=== PATIENT | female | born 1955 | race Caucasian/White ===

== ENCOUNTER 2017-01-15 18:24 | Emergency (ER) | payer BC ==
[2017-01-15] MEDS ORDERED: Phenylephrine 0.5% Nasal Spray 15 ML Bot NASLF ONE (19:54)
[2017-01-15] MEDS ORDERED: Acetaminophen/HYDROcodone 325-5 MG Tab PO ONE (21:02)
--- NOTE | 2017-01-15 21:07 | EDM.PDOC ---
ED HPI GENERAL MEDICAL PROBLEM - General Chief Complaint: ENT Problem Stated Complaint: NOSE BLEED Time Seen by Provider: 01/15/17 19:24 Source of Information: Reports: Patient, Family (spouse), RN Notes Reviewed History Limitations: Reports: No Limitations - History of Present Illness INITIAL COMMENTS - FREE TEXT/NARRATIVE: .25 Brought by her Chief complaint Nosebleed History of present illness 61-year-old female underwent septal deviation repair at about 10:30 this morning at [place] [facility], Dr. Camargo Plastic splint inserted bilaterally She had a history of chronic septal deviation since fracture at age 9, possible multiple fractures with chronic right-sided nasal obstruction and recurrent sinusitis. Post surgery she did very well, she could breathe from both sides and she felt relieved. In the afternoon started having some bleeding from the left nares. Now is obstructed by clot and she can feel down the back of her throat. In addition there is still some bleeding going on although she was told to expect this as often as every 15 minutes to change the bandage. She is gagging on the quadrant of the back of her throat - Related Data Allergies Allergy/AdvReac Type Severity Reaction Status Date / Time cephalexin Allergy Cannot Verified 08/19/14 08:13 Remember Home Meds: Home Meds Calcium Carbonate [Calcium] 600 mg PO DAILY 08/12/14 [History] Cyanocobalamin (Vitamin B-12) [B-12] 5,000 mcg PO DAILY 08/12/14 [History] Ferrous Fumarate [Ferrocite] 324 mg PO DAILY PRN 08/12/14 [History] Levothyroxine Sodium [Synthroid] 125 mcg PO DAILY 08/12/14 [History] Venlafaxine HCl [Venlafaxine HCl ER] 300 mg PO DAILY 08/12/14 [History] Past Medical History HEENT History: Reports: Impaired Vision Genitourinary History: Reports: UTI, Recurrent 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 Social & Family History - Tobacco Use Smoking Status *Q: Never Smoker - Caffeine Use Caffeine Use: Reports: Coffee - Recreational Drug Use Recreational Drug Use: No ED ROS ENT - Review of Systems Review Of Systems: See Below Constitutional: Reports: No Symptoms HEENT: Reports: Nosebleed, Other (Nasal pain) Respiratory: Reports: Other (Gagging on postnasal clot). Denies: Shortness of Breath, Cough Cardiovascular: Reports: No Symptoms GI/Abdominal: Reports: No Symptoms Skin: Reports: No Symptoms ED EXAM, ENT - Physical Exam Exam: See Below Exam Limited By: No Limitations General Appearance: Alert, Anxious, Moderate Distress, Other (Minimal elevation blood pressure otherwise vital signs normal) Eye Exam: Bilateral Eye: Normal Inspection Ears: Normal External Exam, Normal Canal, Normal TMs Nose: Other (Plastic splint on both sides, both nares; slow amount of bleeding from left nares, large amount of postnasal clot) Mouth/Throat: Other (Postnasal clot) Head: Atraumatic Neck: Normal Inspection, Supple, Non-Tender Respiratory/Chest: No Respiratory Distress, No Accessory Muscle Use Neurological: Alert, No Motor/Sensory Deficits Psychiatric: Anxious Skin: Warm, Dry Course - Vital Signs Last Recorded V/S: Last Vital Signs Temp 36.1 C 01/15/17 22:05 Pulse 125 H 01/15/17 22:05 Resp 16 01/15/17 22:05 BP 119/85 01/15/17 22:05 Pulse Ox 99 01/15/17 22:05 - Orders/Labs/Meds Meds: Medications Discontinued Medications Generic Name Dose Route Start Last Admin Trade Name Valerie PRN Reason Stop Dose Admin Hydrocodone Bitart/Acetaminophen 2 tab 01/15/17 21:02 01/15/17 21:35 [place] 325-5 Mg PO 01/15/17 21:03 2 tab ONETIME ONE Administration Phenylephrine HCl 0 ml 01/15/17 19:54 01/15/17 20:46 Chris-Synephrine 0.5% Regular Nasal [place] NASLF 01/15/17 19:55 1 dose ONETIME ONE Administration - Re-Assessments/Exams Free Text/Narrative Re-Assessment/Exam: 01/15/17 21:06 61-year-old female with post operative bleeding from the nose. Postnasal clot was removed using suction and bayonet forceps was greatly relieved to the patient. She came to have active bleeding from the left nares. Discussed with ENT on-call Chris-Synephrine injected Neafus stent which was painful for her in the left nares May have reduced bleeding a bit. Mustache dressing Hydrocodone/acetaminophen 2 tablets by mouth for pain 01/15/17 22:02 continues to have bleeding and accumulation of clot postnasally despite leaning forward. Soak through mustache dressing within 5 minutes Discussion with family Discussion with ENT on-call Transferred to [place] for further assessment,[facility], Dr. Salomon ENT accepting Departure - Departure Time of Disposition: 22:00 Disposition: DC/Tfer to Acute Hospital 02 Condition: Good Clinical Impression: Status post nasal surgery Postoperative hemorrhage Qualifiers: Surgical complication system/body Area: respiratory system Procedure type: non- respiratory system Qualified Code(s): J95.831 - Postprocedural hemorrhage of a respiratory system organ or structure following other procedure - Discharge Information Forms: ED Department Discharge Additional Instructions: to see Dr. Salomon in emergency [facility]
[2017-01-15 22:06] VITALS: BP 119/85
== END 2017-01-15 22:40 ==
LOC: JP.ED 18:24
DX: J95.831 Postprocedural hemorrhage of a respiratory system organ or structure following other procedure (principal); E03.9 Hypothyroidism, unspecified
CPT/HCPCS: 99284; A9270

== ENCOUNTER 2024-10-04 11:00 | Emergency (ER) | payer OTHER ==
[2024-10-04 11:47] VITALS: BP 159/86; PULSE 76
[2024-10-04 14:47] LABS: PLATELET COUNT,PLT 234.0 K/uL (130-375); RED BLOOD CELL COUNT 4.02 M/uL (3.77-5.24); WHITE BLOOD CELL COUNT,WBC 6.8 K/uL (3.2-11.0)
[2024-10-04 14:59] LABS: CARBON DIOXIDE,CO2 33.0 mmol/L (21-32); CHLORIDE,CL 101.0 mmol/L (100-108); POTASSIUM,K 4.4 mmol/L (3.6-5.2); SODIUM,NA 138.0 mmol/L (140-148)
[2024-10-04 15:22] LABS: INR 1.0
== END 2024-10-04 16:36 | disposition other institution (70) ==
LOC: JP.ED 11:00
DX: S06.5X0A Traumatic subdural hemorrhage without loss of consciousness, initial encounter (principal); S40.021A Contusion of right upper arm, initial encounter; Z88.1 Allergy status to other antibiotic agents; Z88.5 Allergy status to narcotic agent; Z79.890 Hormone replacement therapy; Z79.899 Other long term (current) drug therapy; Z90.49 Acquired absence of other specified parts of digestive tract; Z87.891 Personal history of nicotine dependence; W01.198A Fall on same level from slipping, tripping and stumbling with subsequent striking against other object, initial encounter; Y93.89 Activity, other specified
CPT/HCPCS: 36415; 70450; 72125; 76377; 80051; 85027; 85610; 85730; 99284; A9270